=== PATIENT | male | born 1985 | race Caucasian/White ===

== ENCOUNTER 2016-09-22 12:38 | Emergency (ER) | payer OTHER ==
[~2016-09-22] VITALS: Ht 167.6 cm; Wt 63.0 kg
[~2016-09-22 12:38] MED LIST: MOME17I EACH NARE
[2016-09-22 12:54] VITALS: BP 107/70; PULSE 72; RESP 20; TEMP 98.5; O2SAT 99
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
[2016-09-22] MEDS ORDERED: KETOROLAC TROMETHAMINE 60 MG/2 ML (IM) VIAL IM ONE (13:45)
[2016-09-22] MEDS ORDERED: ORPHENADRINE INJ 60 MG/2 ML AMP IM ONE (13:45)
[2016-09-22] MEDS ORDERED: CYCL1TAB29 PO (13:56)
[2016-09-22] MEDS ORDERED: IBUP-232 PO (13:56)
== END 2016-09-22 14:37 | disposition home or self-care (01) ==
LOC: PHEFT 12:38
DX: M54.5 Low back pain (principal); M54.6 Pain in thoracic spine; M54.2 Cervicalgia; R51 Headache; F17.200 Nicotine dependence, unspecified, uncomplicated; V49.88XA Car occupant (driver) (passenger) injured in other specified transport accidents, initial encounter; Y92.410 Unspecified street and highway as the place of occurrence of the external cause
CPT/HCPCS: 96372; 99283; J1885; J2360

== ENCOUNTER 2018-01-06 13:53 | Emergency (ER) | payer SELFPAY ==
[~2018-01-06] VITALS: Ht 167.6 cm; Wt 72.1 kg
[~2018-01-06 13:53] MED LIST changes: +CYCL10TA PO; +IBUP-232 PO; -MOME17I EACH NARE
[2018-01-06 13:57] VITALS: BP 118/66; PULSE 73; RESP 16; TEMP 98.2; O2SAT 98
--- NOTE | 2018-01-06 14:25 | PD ---
HPI Chief Complaint: Eye Problems/Injury Time Seen by Provider: 14:08 Travel History International Travel<30 days: No Contact w/Intl Traveler<30days: No Traveled to known affect area: No History of Present Illness HPI 32-year-old male presents to the emergency room for evaluation of bilateral eye irritation, tearing, and right eye foreign body sensation for the past 2-3 weeks. Patient states he was taking a panel off of his roof when a large amount of dust blew into both of his eyes at onset of symptoms. He has been using [id number]-auo-ahgxmuz drops with mild to moderate relief in symptoms. When the drops wear off, his symptoms return. He has been rubbing his eyes. He denies any photophobia, drainage, fever, chills, eye pain, or changes in visual acuity. He does not wear contacts. No chronic medical conditions or daily medications. [facility] Past Medical History Medical History: Denies Significant Hx Diminished Hearing: No Immunizations Current: Yes Influenza Vaccination: No Past Surgical History Surgical History: No Previous Surgery Social History Alcohol Use: No Tobacco Use: Yes (1/2 PPD) Substance Use: No Allergies-Medications (Allergen,Severity, Reaction): Coded Allergies: No Known Allergies (Unverified Adverse Reaction, Unknown, 01/06/18) Reported Meds & Prescriptions Reported Meds & Active Scripts Active No Active Prescriptions or Reported Medications Review of Systems Except as stated in HPI: all other systems reviewed are Neg Physical Exam Narrative GENERAL: Well-nourished, well-developed male in no acute distress. Afebrile. Ambulatory. SKIN: Focused skin assessment warm/dry. HEAD: Normocephalic. EYES: PERRL, EOMI without pain. No proptosis. Mild injection of the right medial conjunctival. No drainage or tearing. No scleral icterus. Visual acuity is 20/17 in the left and 20/20 in the right. No photophobia. Fluorescein staining reveals no corneal abrasion, ulceration, or foreign body. There is no uptake on the eyes. Eyelid eversion reveals no foreign body in either eye. NECK: Supple, trachea midline. No JVD or lymphadenopathy. CARDIOVASCULAR: Regular rate and rhythm without murmurs, gallops, or rubs. RESPIRATORY: Breath sounds equal bilaterally. No accessory muscle use. PSYCHIATRIC: No delusional thought processes. No hallucinations. Data Data Last Documented VS Vital Signs Date Time Temp Pulse Resp B/P (MAP) Pulse Ox O2 Delivery O2 Flow Rate FiO2 01/06/18 13:57 98.2 73 16 118/66 (83) 98 MDM Medical Decision Making Medical Screen Exam Complete: Yes Emergency Medical Condition: Yes Medical Record Reviewed: Yes Differential Diagnosis Allergic conjunctivitis, rhinitis, URI, foreign body, corneal abrasion Narrative Course 32-year-old male presents to the emergency room for evaluation of bilateral eye irritation, tearing for the past 2-3 weeks. Symptoms started after a large pile of dust blew into his face. Denies any photophobia, changes in visual acuity, drainage, eye pain, or fevers. Physical exam is unremarkable. PERRL, EOMI without pain. No proptosis. Mild injection of the right medial conjunctival. No drainage or tearing. No scleral icterus. Visual acuity is 20 /17 in the left and 20/20 in the right. No photophobia. Fluorescein staining reveals no corneal abrasion, ulceration, or foreign body. There is no uptake on the eyes. Eyelid eversion reveals no foreign body in either eye. History and physical exam are most consistent with allergic conjunctivitis. Patient was reassured. Told to continue using [id number]-ppy-[id number] eyedrops and add oral antihistamine medications. Told to follow-up with an warehouse man if symptoms persist. He understands and agrees to plan. Diagnosis Primary Impression: Allergic conjunctivitis Qualified Codes: H10.13 - Acute atopic conjunctivitis, bilateral Referrals: Primary Care Physician Additional Instructions: Rest and drink plenty of fluids. Continue vcjs-hrf-xajraup eyedrops for symptoms. Start uabo-gav-zgzjdzn Dee Dee, Zyrtec, or Claritin as directed on box. Follow-up with warehouse man. Return to the emergency room for worsening symptoms. Med/Other Pt SpecificInfo: Prescription(s) given Scripts No Active Prescriptions or Reported Meds Disposition: 01 DISCHARGE HOME Condition: Stable Dania Wilson Jan 06, 2018 14:25
== END 2018-01-06 14:33 | disposition home or self-care (01) ==
LOC: PHEFT 13:53
DX: H10.13 Acute atopic conjunctivitis, bilateral (principal); F17.200 Nicotine dependence, unspecified, uncomplicated
CPT/HCPCS: 99282